=== PATIENT | male | born 1975 | race Caucasian/White ===

== ENCOUNTER 2020-08-05 12:05 | Emergency (ER) | payer OTHER ==
[~2020-08-05] VITALS: Ht 172.7 cm; Wt 79.4 kg
[2020-08-05] MEDS ORDERED: NICODERM CQ1 EA10 TD (13:51)
== END 2020-08-05 13:53 | disposition home or self-care (01) ==
LOC: ER 12:05
DX: L23.7 Allergic contact dermatitis due to plants, except food (principal); F17.200 Nicotine dependence, unspecified, uncomplicated
CPT/HCPCS: 96372; 99283-25; J3301